=== PATIENT | male | born 1965 | race Caucasian/White ===

== ENCOUNTER → 2016-10-16 | Outpatient (CLI) | payer OTHER ==
[~2016-10-16] MED LIST: ATOR1TAB21 PO; BUPR150T3 PO; CYMB1CAP5 PO; EXCEDRINE MIGRAINE PO; HYDR200T3 PO; IBUP800T OR; LYRI75CA PO; PANT40TA2 PO; ROBA750T4 PO; SUCR1TA PO; ZOFR20TA PO
--- NOTE | 2016-10-17 01:10 | ECWPNPC ---
PATIENT NAME: LIYA RUSS : 1965 GENDER: MALE VISIT DATE: 10/16/2016 DISCHARGE DATE: 10/16/16 1541 VISIT LOCKED DATE TIME: PHYSICIAN: MARTINE MADISON RESOURCE: MARTINE MADISON REASON FOR APPOINTMENT 1. RIGHT SHOULDER HISTORY OF PRESENT ILLNESS HISTORY OF PRESENT ILLNESS: HERE FOR F/U FOR BILATERAL SHOULDER PAIN R>L.THIS IS A WORK RELATED INJURY BEGINING IN 1998.DIAGNOSED WITH THORAIC OUTLET SYNDROME.TODAY HE REPORTS THAT HE SAW DR. GROSSMAN AT [facility] PER DR. KIM REQUEST .HE TOLD HIM THAT HE IS NOT A SURGICAL CANDIDATE.THEY GAVE HIM A SHOT IN HIS RIGHT SHOULDER WHICH GAVE HIM 3 WEEKS OF IMPROVEMENT THEN PAIN RETURNED.RATING PAIN VAS 6/10.COMPLAINING OF SEVERE RIGHT ABDOMINAL PAIN AND NO BM IN 5 DAYS.WAS TAKING LYRICA 100MG DAILY BUT RAN OUT 3 WEEKS AGO. FALL RISK SCREENING: SCREENING :NO FALLS IN THE PAST YEAR CURRENT MEDICATIONS TAKING LIDOCAINE 5 % OINTMENT DIRECTED EXTERNALLY AT RIGHT SHOULDER FOUR TIMES DAILY FOR PAIN TAKING ATORVASTATIN CALCIUM 20 MG TABLET 1 TABLET ORALLY ONCE A DAY TAKING SUCRALFATE 1 GM TABLET ORALLY TID TAKING HYDROXYCHLOROQUINE SULFATE 200 MG TABLET 1 TABLET WITH FOOD OR MILK ORALLY TWICE A DAY TAKING LYRICA 100 MG CAPSULE 1 CAPSULE ORALLY THREE TIMES A DAY MDD3, NOTES: RAN OUT--HASN'T TAKEN IN 2 WEEKS TAKING PANTOPRAZOLE SODIUM 40 MG TABLET DELAYED RELEASE 1 TABLET ORALLY ONCE A DAY TAKING DULOXETINE HCL 30 MG CAPSULE DELAYED RELEASE PARTICLES 1 CAPSULE ORALLY TWICE A DAY MEDICATION LIST REVIEWED AND RECONCILED WITH THE PATIENT PAST MEDICAL HISTORY RA DDD THORACIC OUTLET SYNDROME TORN RIGHT ROTATOR CUFF ALLERGIES N.K.D.A. SOCIAL HISTORY GENERAL: TOBACCO USE ARE YOU A:CURRENT SMOKER HOW MANY CIGARETTES A DAY DO YOU SMOKE?6-10 HOW SOON AFTER YOU WAKE UP DO YOU SMOKE YOUR FIRST CIGARETTE?6-30 MIN HOW OFTEN DO YOU SMOKE CIGARETTES?EVERY DAY PATIENT COUNSELED ON THE DANGERS OF TOBACCO USE AND URGED TO QUIT: COUNCELED ON THE IMPORTANCE OF QUITTING LEARNING BARRIERS / SPECIAL NEEDS ORIENTED TO PLAN OF CARE: PATIENT, PAIN MANAGEMENT PATIENT, ORIENTED TO PLAN OF CARE: PATIENT, PAIN MANAGEMENT PATIENT. NEW PATIENT PAIN DIARY TODAY'S VISITNOTES FROM 0-10, WHAT LEVEL IS YOUR PAIN TODAY?0 PAIN CLINIC PFS, CLERGY, PUBLIC HEALTH REFERRALS PFS REFERRAL NEEDED?NO CLERGY REFERRAL NEEDED?NO PUBLIC HEALTH REFERRAL NEEDED?NO WAS THE PROVIDER NOTIFIED OF ANY PERTINENT INFO?NO PFS REFERRAL NEEDED?NO CLERGY REFERRAL NEEDED?NO PUBLIC HEALTH REFERRAL NEEDED?NO WAS THE PROVIDER NOTIFIED OF ANY PERTINENT INFO?NO REVIEW OF SYSTEMS CONSTITUTIONAL: ANY CHANGE IN YOUR MEDICAL CONDITION? YES, DIAGNOSED WITH CDIFF APPROX 6 WEEKS AGO. TREATED WITH ANTIBIOTIC FOR 2 WEEKS. PAIN WENT AWAY FOR 2-3 WEEKS AND RETURNED APPROX. 1 WEEK AFTER COMPLETING ANTIBIOTIC. HAVING RIGHT SIDED ABD PAIN NOW 05/13. STATED HE BLACKED OUT FOR A FEW SECONDS THIS MORNING DUE TO THE PAIN . RECENT ILLNESS DENIES . CHILLS NO . FEVER NO . WEIGHT LOSS DENIES . INFECTION: DO YOU HAVE NEW INFECTIONS? YES, CDIFF . DO YOU HAVE HISTORY OF MRSA? NO . MUSCULOSKELETAL: ANY NEW PATTERNS OF PAIN OR NUMBNESS? NO . GASTROENTEROLOGY: ANY NEW CHANGE IN BOWEL CONTROL? YES, CONSTIPATED, HASN'T HAS A BM SINCE LAST SUN. . GENITOURINARY: ANY NEW CHANGE IN BLADDER CONTROL? NO . IS THERE A CHANCE YOU COULD BE ? NO . HEMATOLOGY/LYMPH: DO YOU TAKE ANY BLOOD THINNERS? (FOR EXAMPLE- COUMADIN, PLAVIX, AGGRENOX, PLATEL, PRADAXA, OR XARELTO) NO . WHEN WAS YOUR LAST DOSE? DATE: TIME: . NEUROLOGY: HAVE YOU FALLEN IN THE PAST 6 MONTHS? NO . ANY NEW EXTREMITY NUMBNESS OR WEAKNESS? NO . CARDIOLOGY: DO YOU HAVE A PACEMAKER OR DEFIBRILLATOR? NO . CHEST PAIN DENIES . SHORTNESS OF BREATH DENIES . RESPIRATORY: HAVE YOU BEEN SICK IN THE PAST WEEK? NO . FEVER NO . FLU LIKE SYMPTOMS? NO . COUGH NO, DENIES . SHORTNESS OF BREATH DENIES . INTEGUMENTARY: DO YOU HAVE ANY RASHES OR OPEN SORES? NO . ALLERGIC/IMMUNO: ARE YOU ALLERGIC TO SHELLFISH OR IV DYE? NO . ANY NEW ALLERGIES? NO . PSYCHIATRIC: DO YOU HAVE THOUGHTS OF HURTING YOURSELF OR SOMEONE ELSE? NO . ARE YOU ABUSED, NEGLECTED, OR IN AN UNSAFE ENVIRONMENT? NO . ENDOCRINOLOGY: ARE YOU DIABETIC? NO . OTHER: DO YOU NEED ANY PRESCRIPTIONS? YES, LYRICA . IF YES, PLEASE LIST: ____ . ANY NEW PROBLEMS WITH YOUR MEDICATIONS? NO . WHEN DID YOU LAST EAT? ____ . WHEN DID YOU LAST DRINK? ____ . WHAT DID YOU LAST DRINK? ____ . NAME OF PERSON DRIVING YOU HOME? ____ . DO YOU HAVE ANY OTHER QUESTIONS OR CONCERNS NO . REVIEWED BY: PROVIDER: MARTINE BONDS . VITAL SIGNS WT 175.2 LBS, HT 68 IN, BMI 26.64 INDEX, BP 149/79 MM HG, HR 94 /MIN, RR 16 /MIN, TEMP 97.6 F, OXYGEN SAT % 98, NA INITIALS TL 1455, REVIEWED BY: AD. EXAMINATION GENERAL EXAMINATION: LUNGS:LUNG SOUNDS ARE CLEAR. HEART:HEART RATE REGULAR. 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 HANDS.ROJM BILAT. UPPER EXTREMITIES FULL.TENDERNESS OVER RIGHT SHOULDER AND TRAPEZIUS.TRIGGER POINTS. ELICITED RIGHT TRAPEZIUS.PAIN IN THIS AREA INCRESES WITH USE OF RIGHT ARM.. DIAGNOSTIC: . ASSESSMENTS CERVICALGIA - M54.2 (PRIMARY) PAIN IN RIGHT SHOULDER - M25.511 MYALGIA - M79.1 TREATMENT CERVICALGIA TRIGGER POINT 1-2 AREAS NOTES: TRIGGER POINT INJECTION MATERIAL WAS PRINTED,TRIGGER POINT INJECTION: YOUR EXPERIENCE MATERIAL WAS PRINTED. PROCEDURES PN WORKMANS' COMP OPINION IN YOUR OPINION, WAS THE INCIDENT THAT THE PATIENT DESCRIBED THE COMPETENT MEDICAL CAUSE OF THIS INJURY/ILLNESS? YES ARE THE PATIENT'S COMPLAINTS CONSISTENT WITH HIS/HER HISTORY OF THE INJURY/ILLNESS? YES IS THE PATIENT'S HISTORY OF THE INJURY/ILLNESS CONSISTENT WITH YOUR OBJECTIVE FINDING? YES WHAT IS THE PERCENTAGE OF TEMPORARY IMPAIRMENT? MODERATE TO MARKED = 66.7% IS THE PATIENT WORKING? NO DOCTOR ON SITE: BRANDY AHMADI MD PROCEDURE CODES FA211 ESTABILISHED PATIENT [facility] CHARGE FOLLOW UP F/U W -W/C (REASON: TPI RIGHT SHOULDER-W/C) ELECTRONICALLY SIGNED BY CAMMIE MALONEY ON 10/16/2016 AT 03:42 PM EST DISCLAIMER : THIS IS A VISIT SUMMARY EXTRACTED FROM THE [employer] CHART. IT IS NOT A COPY OF THE [employer] PROGRESS NOTE. VANIAD
== END ==
LOC: M PAIN 14:40
PROVIDERS: ATTEND Nurse Practitioner Family
DX: Z09 Encounter for follow-up examination after completed treatment for conditions other than malignant neoplasm (principal); G89.29 Other chronic pain; M50.120 Mid-cervical disc disorder, unspecified level; M25.511 Pain in right shoulder; M79.1 Myalgia; M06.9 Rheumatoid arthritis, unspecified; M79.2 Neuralgia and neuritis, unspecified; F17.200 Nicotine dependence, unspecified, uncomplicated; R10.9 Unspecified abdominal pain; K59.00 Constipation, unspecified; Z79.899 Other long term (current) drug therapy; Z86.19 Personal history of other infectious and parasitic diseases